=== PATIENT | female | born 1935 | race American Indian/Alaskan Native ===

== ENCOUNTER 2017-06-11 11:27 | Inpatient (IN) | payer MEDICARE ==
[2017-06-11 12:36] LABS: Basophils % (Auto) 0.5 % (0.0-1.8); Eosinophils % (Auto) 1.3 % (0.0-4.3); Hematocrit 37.8 % (30.3-42.9); Hemoglobin 11.6 gm/dl (10.1-14.3); Mean Corpuscular HGB Conc 31 % (30-34); Mean Corpuscular Volume 82 fl (79-97); Platelet Count 149 K/mm3 (140-440); Red Blood Count 4.63 M/mm3 (3.65-5.03); Red Cell Distribution Width 14.9 % (13.2-15.2); White Blood Count 4.7 K/mm3 (4.5-11.0)
--- NOTE | 2017-06-11 12:37 | XRay Report ---
AP CHEST : 06/11/17 11:27:00 CLINICAL: Chest pain. COMPARISON:None FINDINGS: Cardiomegaly. Prominent central pulmonary vessels. Median sternotomy wires. Aortic tortuosity and calcification. Mild bilateral interstitial lung opacities. No pleural effusion. IMPRESSION: Mild CHF.
[2017-06-11 12:41] LABS: Mean Corpuscular Hemoglobin 25 pg (28-32)
[2017-06-11 12:46] LABS: INR 1.04 (0.87-1.13)
[2017-06-11 12:47] LABS: Partial Thromboplastin Time 27.5 Sec. (24.2-36.6)
[2017-06-11 12:49] LABS: Anion Gap 14 mmol/L; BUN/Creatinine Ratio 23; Blood Urea Nitrogen 21 mg/dL (7-17); Calcium 9.6 mg/dL (8.4-10.2); Carbon Dioxide 31 mmol/L (22-30); Glucose 87 mg/dL (65-100); Potassium 4.5 mmol/L (3.6-5.0); Sodium 140 mmol/L (137-145)
--- NOTE | 2017-06-11 13:02 | Emergency Department Report ---
ED Chest Pain HPI - General Chief Complaint: Chest Pain Stated Complaint: CHEST PAIN Time Seen by Provider: 06/11/17 12:36 Source: patient, EMS Mode of arrival: Stretcher Limitations: Physical Limitation - History of Present Illness Initial Comments: Patient states that earlier this morning she had an anterior nonradiating chest pain. She states it lasted for a "long time". She complains of chronic dyspnea which I don't think is acutely worse. She's had a recent admission to [facility] I believe for congestive heart failure. Review of the patient's previous cardiac catheterization indicates that she has a mid LAD in-stent restenosis with a 8% mid circumflex and an 80% OM 1 lesion. She is status post ORTEGA to the right ear and SVG to OM. See CABG). She has a very significant and lengthy cardiac history. She is a patient of [facility] [employer]. She has a history of insulin-dependent diabetes as well as hypertension and congestive heart failure. MD Complaint: chest pain -: hour(s) Onset: during rest Pain Location: substernal Pain Radiation: none Severity: moderate Quality: heaviness Consistency: now resolved Improves With: nothing Worsens With: nothing re: dyspnea Other Symptoms: denies: cough, fever, syncope Aspirin use within the Past 7 Days: (1) Yes - Related Data Home Medications Medication Instructions Recorded Confirmed Last Taken Amlodipine Besylate [Amlodipine 10 mg PO DAILY 03/15/16 03/15/16 03/14/16 Besylate] 10mg Brimonidine Tartrate [Alphagan P 1 drop OU TID 03/15/16 03/15/16 03/14/16 0.1%] 1 Clopidogrel Bisulfate [Clopidogrel] 75 mg PO DAILY 03/15/16 03/15/16 03/14/16 75mg Ezetimibe [Zetia] 10 mg PO DAILY 03/15/16 03/15/16 03/14/16 10mg Furosemide [Furosemide] 80 mg PO DAILY 03/15/16 03/15/16 03/14/16 80mg Gabapentin [Gabapentin] 600 mg PO BID 03/15/16 03/15/16 03/14/16 600mg ISOSORBIDE MONOnitrate [Imdur ER] 60 mg PO DAILY 03/15/16 03/15/16 03/14/16 60mg Insulin Lispro [Humalog 100 10 units SC DAILY PRN 03/15/16 03/15/16 Unknown UNITS/ML Kwikpen] Insulin NPH Hum/Reg Insulin Hm 15 units SC BID 03/15/16 03/15/16 03/14/16 [HumuLIN 70-30 Vial] 15units Metformin HCl [Metformin HCl] 1,000 mg PO BID 03/15/16 03/15/16 03/14/16 1000mg Metolazone [Metolazone] 2.5 mg PO 1XW 03/15/16 03/15/16 03/09/16 2.5mg Metoprolol Tartrate [Metoprolol 50 mg PO BID 03/15/16 03/15/16 03/14/16 Tartrate] 50mg Valsartan/Hydrochlorothiazide 1 tab PO DAILY 03/15/16 03/15/16 03/14/16 [Valsartan-Hctz 320-12.5 mg] 1 Allergies Allergy/AdvReac Type Severity Reaction Status Date / Time No Known Allergies Allergy Verified 03/15/16 07:21 Heart Score - HEART Score History: Highly suspicious EKG: Non-specific Age: > 65 Risk factors: > 3 risk factors or hx of atherosclerotic disease Troponin: < normal limit HEART Score: 7 ED Review of Systems ROS: Stated complaint: CHEST PAIN Other details as noted in HPI Constitutional: denies: chills, fever Eyes: denies: eye pain, eye discharge, vision change ENT: denies: ear pain, throat pain Respiratory: no symptoms reported, shortness of breath, SOB with exertion, SOB at rest. denies: cough, wheezing Cardiovascular: as per HPI, chest pain. denies: palpitations Endocrine: no symptoms reported Gastrointestinal: denies: abdominal pain, nausea, diarrhea Genitourinary: denies: urgency, dysuria, discharge Musculoskeletal: denies: back pain, joint swelling, arthralgia Skin: denies: rash, lesions Neurological: denies: headache, weakness, paresthesias Psychiatric: denies: anxiety, depression Hematological/Lymphatic: denies: easy bleeding, easy bruising ED Past Medical Hx - Past Medical History Hx Hypertension: Yes Hx Heart Attack/AMI: Yes Hx Congestive Heart Failure: No Hx Diabetes: Yes - Surgical History Hx Coronary Stent: Yes Hx Open Heart Surgery: Yes (CABG x 4) Hx Cholecystectomy: Yes - Social History Smoking Status: Never Smoker Substance Use Type: Alcohol - Medications Home Medications: Home Medications Medication Instructions Recorded Confirmed Last Taken Type Amlodipine Besylate [Amlodipine 10 mg PO DAILY 03/15/16 03/15/16 03/14/16 History Besylate] 10mg Brimonidine Tartrate [Alphagan P 1 drop OU TID 03/15/16 03/15/16 03/14/16 History 0.1%] 1 Clopidogrel Bisulfate [Clopidogrel] 75 mg PO DAILY 03/15/16 03/15/16 03/14/16 History 75mg Ezetimibe [Zetia] 10 mg PO DAILY 03/15/16 03/15/16 03/14/16 History 10mg Furosemide [Furosemide] 80 mg PO DAILY 03/15/16 03/15/16 03/14/16 History 80mg Gabapentin [Gabapentin] 600 mg PO BID 03/15/16 03/15/16 03/14/16 History 600mg ISOSORBIDE MONOnitrate [Imdur ER] 60 mg PO DAILY 03/15/16 03/15/16 03/14/16 History 60mg Insulin Lispro [Humalog 100 10 units SC DAILY PRN 03/15/16 03/15/16 Unknown History UNITS/ML Kwikpen] Insulin NPH Hum/Reg Insulin Hm 15 units SC BID 03/15/16 03/15/16 03/14/16 History [HumuLIN 70-30 Vial] 15units Metformin HCl [Metformin HCl] 1,000 mg PO BID 03/15/16 03/15/16 03/14/16 History 1000mg Metolazone [Metolazone] 2.5 mg PO 1XW 03/15/16 03/15/16 03/09/16 History 2.5mg Metoprolol Tartrate [Metoprolol 50 mg PO BID 03/15/16 03/15/16 03/14/16 History Tartrate] 50mg Valsartan/Hydrochlorothiazide 1 tab PO DAILY 03/15/16 03/15/16 03/14/16 History [Valsartan-Hctz 320-12.5 mg] 1 ED Physical Exam - General Limitations: Physical Limitation General appearance: alert, in no apparent distress - Head Head exam: Present: atraumatic, normocephalic - Eye Eye exam: Present: normal appearance. Absent: scleral icterus - ENT ENT exam: Present: mucous membranes moist - Neck Neck exam: Present: normal inspection - Respiratory Respiratory exam: Present: normal lung sounds bilaterally. Absent: respiratory distress - Cardiovascular Cardiovascular Exam: Present: regular rate, normal rhythm. Absent: systolic murmur, diastolic murmur, rubs, gallop - GI/Abdominal GI/Abdominal exam: Present: soft, normal bowel sounds. Absent: distended, tenderness, guarding, rebound, rigid - Extremities Exam Extremities exam: Present: normal inspection, other (no significant leg edema). Absent: calf tenderness - Back Exam Back exam: Present: normal inspection - Neurological Exam Neurological exam: Present: alert, oriented X3, other (no acute focal deficit) - Psychiatric Psychiatric exam: Present: normal affect, normal mood - Skin Skin exam: Present: warm, dry, intact, normal color. Absent: rash ED Course Vital Signs 06/11/17 06/11/17 11:43 11:50 Temperature 98.0 F Pulse Rate 55 L 54 L Respiratory 15 16 Rate Blood Pressure 147/63 Blood Pressure 147/63 [Right] - Reevaluation(s) Reevaluation #1: Chest x-ray showed mild CHF. The patient was given 20 of Lasix IV, and half an inch of Nitrol paste and aspirin. She is stable at this time and referred to Dr. Patel, hospital service. 06/11/17 13:40 MATT score - Matt Score Age > 65: (1) Yes Aspirin use within the Past 7 Days: (1) Yes 3 or more CAD Risk Factors: (1) Yes 2 or more Angina events in past 24 hrs: (0) No Known CAD with more than 50% Stenosis: (1) Yes Elevated Cardiac Markers: (0) No ST Deviation Greater than 0.5mm: (0) No MATT Score: 4 ED Medical Decision Making - Lab Data Result diagrams: 06/11/17 12:10 06/11/17 12:10 Laboratory Results - last 24 hr 06/11/17 06/11/17 06/11/17 12:10 12:10 12:10 WBC 4.7 RBC 4.63 Hgb 11.6 Hct 37.8 MCV 82 MCH 25 L MCHC 31 RDW 14.9 Plt Count 149 Lymph % (Auto) 39.0 H Stanley % (Auto) 6.9 Eos % (Auto) 1.3 Baso % (Auto) 0.5 Lymph # 1.9 Stanley # 0.3 Eos # 0.1 Baso # 0.0 Seg Neutrophils % 52.3 Seg Neutrophils # 2.5 PT 14.1 INR 1.04 APTT 27.5 Sodium 140 Potassium 4.5 Chloride 100.0 Carbon Dioxide 31 H Anion Gap 14 BUN 21 H Creatinine 0.9 Estimated GFR > 60 BUN/Creatinine Ratio 23 Glucose 87 Calcium 9.6 Troponin T < 0.010 NT-Pro-B Natriuret Pep 06/11/17 12:10 WBC RBC Hgb Hct MCV MCH MCHC RDW Plt Count Lymph % (Auto) Stanley % (Auto) Eos % (Auto) Baso % (Auto) Lymph # Stanley # Eos # Baso # Seg Neutrophils % Seg Neutrophils # PT INR APTT Sodium Potassium Chloride Carbon Dioxide Anion Gap BUN Creatinine Estimated GFR BUN/Creatinine Ratio Glucose Calcium Troponin T NT-Pro-B Natriuret Pep 350.2 Laboratory Results - last 24 hr 06/11/17 06/11/17 06/11/17 12:10 12:10 12:10 WBC 4.7 RBC 4.63 Hgb 11.6 Hct 37.8 MCV 82 MCH 25 L MCHC 31 RDW 14.9 Plt Count 149 Lymph % (Auto) 39.0 H Stanley % (Auto) 6.9 Eos % (Auto) 1.3 Baso % (Auto) 0.5 Lymph # 1.9 Stanley # 0.3 Eos # 0.1 Baso # 0.0 Seg Neutrophils % 52.3 Seg Neutrophils # 2.5 PT 14.1 INR 1.04 APTT 27.5 Sodium 140 Potassium 4.5 Chloride 100.0 Carbon Dioxide 31 H Anion Gap 14 BUN 21 H Creatinine 0.9 Estimated GFR > 60 BUN/Creatinine Ratio 23 Glucose 87 Calcium 9.6 Troponin T < 0.010 NT-Pro-B Natriuret Pep 06/11/17 12:10 WBC RBC Hgb Hct MCV MCH MCHC RDW Plt Count Lymph % (Auto) Stanley % (Auto) Eos % (Auto) Baso % (Auto) Lymph # Stanley # Eos # Baso # Seg Neutrophils % Seg Neutrophils # PT INR APTT Sodium Potassium Chloride Carbon Dioxide Anion Gap BUN Creatinine Estimated GFR BUN/Creatinine Ratio Glucose Calcium Troponin T NT-Pro-B Natriuret Pep 350.2 - EKG Data EKG shows normal: sinus rhythm Rate: bradycardia - EKG Data Interpretation: other (supraventricular ectopic beats, sinus bradycardia, old inferior wall tenderness, poor R-wave progression, intraventricular conduction delay) - Radiology Data Radiology results: report reviewed interpreted by me: Chest x-ray with early CHF Critical care attestation.: If time is entered above; I have spent that time in minutes in the direct care of this critically ill patient, excluding procedure time. ED Disposition Clinical Impression: Bradycardia Chest pain Qualifiers: Chest pain type: chest pain due to myocardial ischemia Ischemic chest pain type : unstable angina pectoris Qualified Code(s): I20.0 - Unstable angina Hypertension Qualifiers: Hypertension type: essential hypertension Qualified Code(s): I10 - Essential ( primary) hypertension Congestive heart failure Qualifiers: Congestive heart failure type: combined Congestive heart failure chronicity: acute on chronic Qualified Code(s): I50.43 - Acute on chronic combined systolic (congestive) and diastolic (congestive) heart failure Disposition: 09 OP ADMIT IP TO THIS HOSP Is pt being admited?: Yes Does the pt Need Aspirin: Yes Condition: Stable Instructions: Chest Pain (ED), Hypertension (ED) Referrals: PRIMARY CARE, [Primary Care Provider] - 3-5 Days
[2017-06-11] MEDS ORDERED: NITRO-BID 2% TP ONE (13:28)
[2017-06-11] MEDS ORDERED: ASPIRIN PO ONE (13:28)
[2017-06-11] MEDS ORDERED: LASIX IV ONE (13:29)
[2017-06-11] MEDS ORDERED: TYLENOL PO PRN (13:34)
[2017-06-11] MEDS ORDERED: ZOFRAN IV PRN (13:34)
[2017-06-11] MEDS ORDERED: DULCOLAX PR PRN (13:34)
[2017-06-11] MEDS ORDERED: MILK OF MAGNESIA PO PRN (13:34)
[2017-06-11] MEDS ORDERED: PROVENTIL IH PRN (13:34)
[2017-06-11] MEDS ORDERED: SODIUM CHLORIDE FLUSH SYRINGE 10 ML IV PRN (13:37)
--- NOTE | 2017-06-11 13:37 | History and Physical Report ---
History of Present Illness Chief complaint: I have pain in my chest History of present illness: 82 YO Female with HTN, DM, CHF,OK, CAD S/P CABG and Stent presents to ED for evaluation. Pt states that she experienced acute onset pain in her chest today. Pt states that pain is 7/10, Crushing in nature, Substernal, Radiates to left shoulder and arm, and is associated with shortness of breath. Pt recently admitted to [facility] for congestive heart failure. Review of the patient' s previous cardiac cath reveals: mid LAD in-stent restenosis with a 8% mid circumflex and an 80% OM 1 lesion. She is status post ORTEGA to the right ear and SVG to OM. PT denies fever, chills, palpitations, NVD, Unilateral leg swelling, calf pain, prolonged travel/immobility, Individual/Family history of DVT/PE. No recent ill contacts. Past History Past Medical History: acute OK, CAD, diabetes, heart failure, hypertension Past Surgical History: CABG, Other (Stent) Social history: , lives with family. denies: smoking, alcohol abuse Family history: diabetes, hypertension Medications and Allergies Allergies Allergy/AdvReac Type Severity Reaction Status Date / Time No Known Allergies Allergy Verified 03/15/16 07:21 Home Medications Medication Instructions Recorded Confirmed Last Taken Type Amlodipine Besylate [Amlodipine 10 mg PO DAILY 03/15/16 03/15/16 03/14/16 History Besylate] 10mg Brimonidine Tartrate [Alphagan P 1 drop OU TID 03/15/16 03/15/16 03/14/16 History 0.1%] 1 Clopidogrel Bisulfate [Clopidogrel] 75 mg PO DAILY 03/15/16 03/15/16 03/14/16 History 75mg Ezetimibe [Zetia] 10 mg PO DAILY 03/15/16 03/15/16 03/14/16 History 10mg Furosemide [Furosemide] 80 mg PO DAILY 03/15/16 03/15/16 03/14/16 History 80mg Gabapentin [Gabapentin] 600 mg PO BID 03/15/16 03/15/16 03/14/16 History 600mg ISOSORBIDE MONOnitrate [Imdur ER] 60 mg PO DAILY 03/15/16 03/15/16 03/14/16 History 60mg Insulin Lispro [Humalog 100 10 units SC DAILY PRN 03/15/16 03/15/16 Unknown History UNITS/ML Kwikpen] Insulin NPH Hum/Reg Insulin Hm 15 units SC BID 03/15/16 03/15/16 03/14/16 History [HumuLIN 70-30 Vial] 15units Metformin HCl [Metformin HCl] 1,000 mg PO BID 03/15/16 03/15/16 03/14/16 History 1000mg Metolazone [Metolazone] 2.5 mg PO 1XW 03/15/16 03/15/16 03/09/16 History 2.5mg Metoprolol Tartrate [Metoprolol 50 mg PO BID 03/15/16 03/15/16 03/14/16 History Tartrate] 50mg Valsartan/Hydrochlorothiazide 1 tab PO DAILY 03/15/16 03/15/16 03/14/16 History [Valsartan-Hctz 320-12.5 mg] 1 Active Meds: Active Medications Acetaminophen (Tylenol) 650 mg PO Q4H PRN PRN Reason: Pain MILD(1-3)/Fever >100.5/KAUFFMAN Albuterol (Proventil) 2.5 mg IH Q4HRT PRN PRN Reason: Shortness Of Breath Bisacodyl (Dulcolax) 10 mg ND QDAY PRN PRN Reason: Constipation unrelieved by MOM Magnesium Hydroxide (Milk Of Magnesia) 30 ml PO Q4H PRN PRN Reason: Constipation Ondansetron HCl (Zofran) 4 mg IV Q8H PRN PRN Reason: N/V unrelieved by Reglan Review of Systems Constitutional: no weight loss, no weight gain, no fever, no chills, no sweats, no night sweats Ears, nose, mouth and throat: no ear pain, no ear discharge, no tinnitis, no decreased hearing, no nose pain, no nasal congestion, no nasal discharge Breasts: no change in shape, no swelling, no mass Cardiovascular: chest pain, shortness of breath, no orthopnea, no palpitations, no rapid/irregular heart beat, no edema, no dyspnea on exertion, no paroxysmal nocturnal dyspnea, no claudication, no phlebitis Respiratory: no cough, no cough with sputum, no excessive sputum, no hemoptysis , no shortness of breath Gastrointestinal: no abdominal pain, no nausea, no vomiting, no diarrhea, no constipation, no change in bowel habits Genitourinary Female: no dysmenorrhea, no pelvic pain, no flank pain, no menorrhagia Rectal: no pain, no incontinence, no bleeding Musculoskeletal: no neck stiffness, no neck pain, no shooting arm pain, no arm numbness/tingling, no low back pain, no shooting leg pain, no leg numbness/ tingling Integumentary: no rash, no pruritis, no redness, no sores, no wounds Neurological: no head injury, no transient paralysis, no paralysis, no weakness , no parathesias, no numbness, no tingling Psychiatric: no anxiety, no memory loss, no change in sleep habits, no sleep disturbances, no insomnia, no hypersomnia, no change in appetite Endocrine: no cold intolerance, no heat intolerance, no polyphagia, no excessive thirst, no polydipsia, no polyuria, no nocturia Hematologic/Lymphatic: no easy bruising, no easy bleeding Allergic/Immunologic: no urticaria, no allergic rhinitis, no wheezing Exam - Constitutional Vitals: Temp Pulse Resp BP Pulse Ox 98.0 F 54 L 16 147/63 06/11/17 11:50 06/11/17 11:50 06/11/17 11:50 06/11/17 11:50 General appearance: Present: mild distress, obese - EENT Eyes: Present: PERRL ENT: hearing intact, clear oral mucosa - Neck Neck: Present: supple, normal ROM - Respiratory Respiratory: bilateral: diminished - Cardiovascular Heart Sounds: Present: S1 & S2. Absent: rub, click - Extremities Extremities: pulses symmetrical, No edema Extremity abnormal: edema Peripheral Pulses: within normal limits - Abdominal General gastrointestinal: Present: soft, non-tender, non-distended, normal bowel sounds Female genitourinary: Present: normal - Integumentary Integumentary: Present: clear, warm, dry - Musculoskeletal Musculoskeletal: gait normal, strength equal bilaterally - Psychiatric Psychiatric: appropriate mood/affect, intact judgment & insight - Neurologic Neurologic: CNII-XII intact, moves all extremities Results - Labs CBC & Chem 7: 06/11/17 12:10 06/11/17 12:10 Labs: Abnormal lab results 06/11/17 06/11/17 Range/Units 12:10 12:10 MCH 25 L (28-32) pg Lymph % (Auto) 39.0 H (13.4-35.0) % Carbon Dioxide 31 H (22-30) mmol/L BUN 21 H (7-17) mg/dL Assessment and Plan - Patient Problems (1) Congestive heart failure Current Visit: Yes Status: Acute Qualifiers: Congestive heart failure type: systolic Congestive heart failure chronicity : acute on chronic Qualified Code(s): I50.23 - Acute on chronic systolic ( congestive) heart failure Plan to address problem: Admit to telemetry, fluid restriction, afterload reduction, Echo, cardiology consulted, diuretic therapy, monitor uop q shift, negative fluid balance (2) Hypertension Current Visit: Yes Status: Acute Qualifiers: Hypertension type: essential hypertension Qualified Code(s): I10 - Essential (primary) hypertension Plan to address problem: Monitor bp q shift, continue medical management (3) CAD (coronary artery disease) Current Visit: No Status: Chronic Qualifiers: Coronary Disease-Associated Artery/Lesion type: C [place] vs. transplanted heart: N Associated angina: A Plan to address problem: Risk factor reduction, supportive care, lipid panel (4) Diabetes Current Visit: No Status: Chronic Qualifiers: Diabetes mellitus type: D Diabetes mellitus complication status: D Diabetes mellitus complication detail: D Diabetic retinopathy severity: D Proliferative retinopathy type: P Diabetes mellitus macular edema: D Diabetes mellitus long term care pharmacist insulin use: D Laterality: L Chronic kidney disease stage: C Plan to address problem: ADA diet, insulin, accu check (5) Bradycardia Current Visit: Yes Status: Acute Plan to address problem: Telemetry monitoring, supportive care, (6) DVT prophylaxis Current Visit: Yes Status: Acute
[2017-06-11] MEDS ORDERED: INSULIN LISPRO 10 UNIT SC PRN (13:39)
[2017-06-11 15:27] LABS: Alanine Aminotransferase 25 units/L (7-56); Albumin 3.9 g/dL (3.9-5); Albumin/Globulin Ratio 0.9 %; Alkaline Phosphatase 64 units/L (35-129); Total Protein 8.2 g/dL (6.3-8.2)
[2017-06-11 15:37] LABS: Bilirubin,Direct < 0.2 mg/dL (0-0.2); Bilirubin,Indirect 0.4 mg/dL
[2017-06-11] MEDS: NOVOLOG SUB-Q SCH (16:35)
[2017-06-11] MEDS: LASIX IV SCH (18:34)
[2017-06-11] MEDS: ALPHAGAN P 0.15% OU SCH ×2 (22:00→23:00)
[2017-06-11] MEDS: NEURONTIN PO SCH (22:08)
[2017-06-11] MEDS: LOPRESSOR PO SCH (22:08)
[2017-06-12] MEDS: ALPHAGAN P 0.15% OU SCH ×3 (06:19→22:52)
[2017-06-12] MEDS: LASIX IV SCH ×2 (06:19→18:57)
[2017-06-12] MEDS: ZETIA PO SCH (10:00)
[2017-06-12] MEDS ORDERED: HYDROCHLOROTHIAZIDE PO SCH (10:00)
[2017-06-12] MEDS ORDERED: VALSARTAN PO SCH (10:00)
[2017-06-12] MEDS: HCTZ PO SCH (10:05)
[2017-06-12] MEDS: NORVASC PO SCH (10:05)
[2017-06-12] MEDS: DIOVAN PO SCH (10:05)
[2017-06-12] MEDS: LOPRESSOR PO SCH ×2 (10:06→22:52)
[2017-06-12] MEDS: NEURONTIN PO SCH ×2 (10:07→22:51)
[2017-06-12] MEDS: PLAVIX PO SCH (10:07)
[2017-06-12] MEDS: IMDUR PO SCH (10:08)
[2017-06-12] MEDS: NOVOLOG SUB-Q SCH ×3 (10:10→18:00)
--- NOTE | 2017-06-12 12:20 | Event Note ---
Date: 06/12/17 Cardiology note dictated #1 chest pain suggestive of angina pectoris No acute changes on the EKG and cardiac enzymes are so far negative. Will obtain a stress thallium test for further evaluation of ischemia. #2 coronary artery disease Status post myocardial infarction Status post PTCA Status post CABG #3 hypertension #4 hyperlipidemia #5 diabetes #6 sleep apnea #7 DJD Patient will be monitored and followed closely Thank you for me to participate in the care of this pleasant lady Discussed with multiple family members in the room Dr. KAUR Sims
--- NOTE | 2017-06-12 13:42 | Consultation ---
CARDIOLOGY EVALUATION REASON FOR EVALUATION: Chest pain. HISTORY OF PRESENT ILLNESS: The patient is an 82-year-old female who is usually followed at the office, comes into the Emergency Room because of chest discomfort. The pain is described as a dull pressure type of discomfort with radiation to the left arm, lasted for about 1-2 hours. Blood pressure was markedly elevated apparently and the patient came to the Emergency Room and is admitted for further evaluation and management. The patient is well known to us and is followed by Dr. Manzanares in the office. The patient is known to have coronary artery disease and her history dates back to mid when she had myocardial infarction and subsequent PTCA. The patient had bypass surgery done in 2002 or 2003. She is known to have hypertension, hyperlipidemia, and diabetes. The patient is also known to have sleep apnea. The patient had a cardiac catheterization done in 02/2016. This shows patent left main, mid LAD 80% lesion. First diagonal was noted to be patent. ORTEGA to LAD was patent. Circumflex proximal lesion was about 80%. OM to distal 80%. Vein graft to OM1 has a proximal lesion of 20-30%. Mid RCA has diffuse disease. Distal stent was apparently patent. PDA and posterior left ventricular branch are patent. Left ventricular function was satisfactory. Plan was medical management. The patient has been on aspirin 81 mg a day, Diovan 320 mg a day, gabapentin 300 two tablets twice a day, Humalog and Humulin, Imdur 60 mg daily, K-Dur 10 mEq daily, Lasix 80 mg daily, metformin 1 gram b.i.d., metoprolol 50 daily, Norvasc 10 mg daily, Plavix 75 mg daily, Pravachol 20 mg daily, Zaroxolyn 2.5. The patient is also known to have significant peripheral vascular disease. The patient is known to have back problems and uses a walker to assist her or a cane at times. The patient had a cholecystectomy in the past. Rest of the system review is unremarkable. PHYSICAL EXAMINATION: GENERAL: Elderly female, appears to be comfortable, in no acute distress. VITAL SIGNS: Blood pressure is , pulse 60, respirations 18. HEAD, EYES, EARS, NOSE, AND THROAT: Unremarkable. NECK: Supple. No thyromegaly. Both carotids are palpable and equal. Neck veins are flat. CHEST: Symmetrical. LUNGS: Essentially clear. HEART: S1, S2 are heard. No S3. ABDOMEN: Soft, nontender, no hepatosplenomegaly. EXTREMITIES: No calf tenderness. LABORATORY DATA: EKG: Sinus rhythm, left ventricular hypertrophy, left axis deviation, possible old anteroseptal IL. WBC 4.7, hemoglobin 11.6, hematocrit 37.8. Sodium 140, potassium 4.5, BUN 21, creatinine 0.9. BNP 428. Troponin negative x 2. Blood sugar 87. IMPRESSION: 1. Chest pain, improved at this time. 2. Coronary artery disease, status post myocardial infarction, status post bypass surgery. Last cardiac catheterization in 02/2016 showed satisfactory graft and plan at the time was continued medical management. The patient is on appropriate medical therapy. Currently, cardiac enzymes are noted to be negative. Chest pain has improved. We will obtain a nuclear stress test for further assessment of ischemia. 3. Hypertension. 4. Hyperlipidemia. 5. Diabetes. 6. Sleep apnea, on CPAP at home. The patient is seen for cardiac evaluation. She has multiple medical issues as well as cardiac issues of a long duration. The patient will be closely monitored and followed. Thank you for allowing me to participate in the care of this pleasant lady. I have discussed with multiple family members in the room. JOB# [id number]/SAMMY
--- NOTE | 2017-06-12 14:16 | Progress Note ---
Assessment and Plan Assessment and plan: 82 yo obese AAF with CAD s/p remote CABG, then PCI with stent placement, HTN, DM , HPL presents for chest pain with radiation to the left arm 1. Chest pain Chest pain with left arm radiation in a patient with extensive coronary artery disease - most likely anginal EKG with no acute ischemic change First 2 sets of troponin negative Already on metoprolol, valsartan, Imdur, Plavix and Zetia Evaluated by cardiology who decided to obtain stress test in a.m. to further evaluate her ischemia Monitored closed on telemetry unit 2. CAD Status post remote CABG, then PCI with stent placement Last cardiac catheterization 02/2016 showed patent left main, mid LAD 80% stenosis, proximal circumflex with 80% stenosis, mid RCA with diffuse disease On BB, ACEI, nitrate, antiplatelet and statin 3. HTN On all of the above medications Monitor BP 4. Questionable congestive heart failure Per last cardiac catheterization in 02/2016 normal LV function On BB, ACEI, nitrate and 3 diuretics Will discuss with cardiology if she needs to be on 3 diuretics; monitor I's and O's and renal function/electrolytes 4. DM On insulin 70/30 Accu-Cheks and SSI to assess insulin requirements and make adjustments if necessary 5. HPL Continue Zetia 6. [place]ST[place] Brought CPAP machine from home RT to assist 7. Obesity Counseled regarding importance of losing weight 8. DVT prophylaxis Heparin subcutaneous History Interval history: no chest pain this morning scheduled for stress test in am daughter present at bedsite, all her questions answered Hospitalist Physical - Constitutional Vitals: Temp Pulse Resp BP Pulse Ox 98.0 F 60 16 135/57 100 06/12/17 11:40 06/12/17 10:08 06/12/17 11:40 06/12/17 11:40 06/12/17 09:00 General appearance: Present: no acute distress, obese - EENT Eyes: Present: PERRL, EOM intact. Absent: scleral icterus, conjunctival injection - Neck Neck: Present: supple. Absent: enlarged thyroid, masses or JVD, carotid bruits - Respiratory Respiratory effort: normal Respiratory: bilateral: diminished, rhonchi, negative: wheezing - Cardiovascular Rhythm: regular Heart Sounds: Present: S1 & S2. Absent: systolic murmur - Extremities Extremities: no ischemia - Abdominal General gastrointestinal: soft, non-tender, non-distended, normal bowel sounds - Integumentary Integumentary: Present: warm, dry. Absent: jaundice, rash - Psychiatric Psychiatric: cooperative - Neurologic Neurologic: CNII-XII intact, no focal deficits Results - Labs CBC & Chem 7: 06/11/17 12:10 06/11/17 12:10 Labs: Laboratory Last Values WBC 4.7 K/mm3 (4.5-11.0) 06/11/17 12:10 RBC 4.63 M/mm3 (3.65-5.03) 06/11/17 12:10 Hgb 11.6 gm/dl (10.1-14.3) 06/11/17 12:10 Hct 37.8 % (30.3-42.9) 06/11/17 12:10 MCV 82 fl (79-97) 06/11/17 12:10 MCH 25 pg (28-32) L 06/11/17 12:10 MCHC 31 % (30-34) 06/11/17 12:10 RDW 14.9 % (13.2-15.2) 06/11/17 12:10 Plt Count 149 K/mm3 (140-440) 06/11/17 12:10 Lymph % (Auto) 39.0 % (13.4-35.0) H 06/11/17 12:10 [place] % (Auto) 6.9 % (0.0-7.3) 06/11/17 12:10 Eos % (Auto) 1.3 % (0.0-4.3) 06/11/17 12:10 Baso % (Auto) 0.5 % (0.0-1.8) 06/11/17 12:10 Lymph # 1.9 K/mm3 (1.2-5.4) 06/11/17 12:10 Sharp # 0.3 K/mm3 (0.0-0.8) 06/11/17 12:10 Eos # 0.1 K/mm3 (0.0-0.4) 06/11/17 12:10 Baso # 0.0 K/mm3 (0.0-0.1) 06/11/17 12:10 Seg Neutrophils % 52.3 % (40.0-70.0) 06/11/17 12:10 Seg Neutrophils # 2.5 K/mm3 (1.8-7.7) 06/11/17 12:10 PT 14.1 Sec. (12.2-14.9) 06/11/17 12:10 INR 1.04 (0.87-1.13) 06/11/17 12:10 APTT 27.5 Sec. (24.2-36.6) 06/11/17 12:10 Sodium 140 mmol/L (137-145) 06/11/17 12:10 Potassium 4.5 mmol/L (3.6-5.0) 06/11/17 12:10 Chloride 100.0 mmol/L (98-107) 06/11/17 12:10 Carbon Dioxide 31 mmol/L (22-30) H 06/11/17 12:10 Anion Gap 14 mmol/L 06/11/17 12:10 BUN 21 mg/dL (7-17) H 06/11/17 12:10 Creatinine 0.9 mg/dL (0.7-1.2) 06/11/17 12:10 Estimated GFR > 60 ml/min 06/11/17 12:10 BUN/Creatinine Ratio 23 % 06/11/17 12:10 Glucose 87 mg/dL (65-100) 06/11/17 12:10 POC Glucose 257 (70-105) H 06/12/17 11:38 Calcium 9.6 mg/dL (8.4-10.2) 06/11/17 12:10 Magnesium 2.50 mg/dL (1.7-2.3) H 06/11/17 14:38 Total Bilirubin 0.60 mg/dL (0.1-1.2) 06/11/17 14:38 Direct Bilirubin < 0.2 mg/dL (0-0.2) 06/11/17 14:38 Indirect Bilirubin 0.4 mg/dL 06/11/17 14:38 AST 55 units/L (5-40) H 06/11/17 14:38 ALT 25 units/L (7-56) 06/11/17 14:38 Alkaline Phosphatase 64 units/L (35-129) 06/11/17 14:38 Troponin T < 0.010 ng/mL (0.00-0.029) 06/11/17 19:40 NT-Pro-B Natriuret Pep 428.4 pg/mL (0-900) 06/11/17 14:38 Total Protein 8.2 g/dL (6.3-8.2) 06/11/17 14:38 Albumin 3.9 g/dL (3.9-5) 06/11/17 14:38 Albumin/Globulin Ratio 0.9 % 06/11/17 14:38 - Imaging and Cardiology Chest x-ray: image reviewed
[2017-06-12] MEDS: HEPARIN SUB-Q SCH (22:51)
[2017-06-13] MEDS: ALPHAGAN P 0.15% OU SCH ×3 (05:57→22:19)
[2017-06-13] MEDS: LASIX IV SCH ×2 (05:57→17:47)
[2017-06-13] MEDS: HEPARIN SUB-Q SCH ×3 (06:04→22:20)
[2017-06-13] MEDS: NOVOLOG SUB-Q SCH ×3 (08:54→17:55)
[2017-06-13] MEDS ORDERED: LEXISCAN IV ONE (10:00)
--- NOTE | 2017-06-13 11:50 | Progress Note ---
Assessment and Plan Assessment and plan: 82 yo obese AAF with CAD s/p remote CABG, then PCI with stent placement, HTN, DM , HPL presented for chest pain with radiation to the left arm 1. Chest pain Chest pain with left arm radiation in a patient with extensive coronary artery disease - most likely anginal EKG with no acute ischemic change Troponin negative Already on metoprolol, valsartan, Imdur, Plavix and Zetia Evaluated by cardiology and underwent stress test this morning to further evaluate her ischemia; further management based on results Monitoring on telemetry unit 2. CAD Status post remote CABG, then PCI with stent placement Last cardiac catheterization 02/2016 showed patent left main, mid LAD 80% stenosis, proximal circumflex with 80% stenosis, mid RCA with diffuse disease On BB, ACEI, nitrate, antiplatelet and statin 3. HTN On all of the above medications BP controlled 4. Questionable congestive heart failure Per last cardiac catheterization in 02/2016 normal LV function On BB, ACEI, nitrate and 3 diuretics Will discuss with cardiology if she needs to be on 3 diuretics; monitor I's and O's and renal function/electrolytes 4. DM On insulin 70/30 Accu-Cheks and SSI to assess insulin requirements and make adjustments if necessary 5. HPL Continue Zetia 6. [place] Brought CPAP machine from home RT to assist 7. Obesity Counseled regarding importance of losing weight 8. DVT prophylaxis Heparin subcutaneous History Interval history: doing well, had stress test this morning Hospitalist Physical - Constitutional Vitals: Temp Pulse Resp BP Pulse Ox 97.6 F 60 18 135/58 97 06/13/17 05:24 06/13/17 07:00 06/13/17 05:24 06/13/17 05:24 06/13/17 05:24 General appearance: Present: no acute distress, obese - EENT Eyes: Present: PERRL, EOM intact. Absent: scleral icterus, conjunctival injection - Neck Neck: Present: supple, normal ROM. Absent: masses or JVD - Respiratory Respiratory effort: normal Respiratory: bilateral: CTA, negative: rhonchi, wheezing - Cardiovascular Rhythm: regular Heart Sounds: Present: S1 & S2. Absent: systolic murmur - Extremities Extremities: no ischemia - Abdominal General gastrointestinal: soft, non-tender, non-distended, normal bowel sounds - Psychiatric Psychiatric: cooperative - Neurologic Neurologic: CNII-XII intact, no focal deficits Results - Labs CBC & Chem 7: 06/11/17 12:10 06/11/17 12:10 Labs: Laboratory Last Values WBC 4.7 K/mm3 (4.5-11.0) 06/11/17 12:10 RBC 4.63 M/mm3 (3.65-5.03) 06/11/17 12:10 Hgb 11.6 gm/dl (10.1-14.3) 06/11/17 12:10 Hct 37.8 % (30.3-42.9) 06/11/17 12:10 MCV 82 fl (79-97) 06/11/17 12:10 MCH 25 pg (28-32) L 06/11/17 12:10 MCHC 31 % (30-34) 06/11/17 12:10 RDW 14.9 % (13.2-15.2) 06/11/17 12:10 Plt Count 149 K/mm3 (140-440) 06/11/17 12:10 Lymph % (Auto) 39.0 % (13.4-35.0) H 06/11/17 12:10 [place] % (Auto) 6.9 % (0.0-7.3) 06/11/17 12:10 Eos % (Auto) 1.3 % (0.0-4.3) 06/11/17 12:10 Baso % (Auto) 0.5 % (0.0-1.8) 06/11/17 12:10 Lymph # 1.9 K/mm3 (1.2-5.4) 06/11/17 12:10 [place] # 0.3 K/mm3 (0.0-0.8) 06/11/17 12:10 Eos # 0.1 K/mm3 (0.0-0.4) 06/11/17 12:10 Baso # 0.0 K/mm3 (0.0-0.1) 06/11/17 12:10 Seg Neutrophils % 52.3 % (40.0-70.0) 06/11/17 12:10 Seg Neutrophils # 2.5 K/mm3 (1.8-7.7) 06/11/17 12:10 PT 14.1 Sec. (12.2-14.9) 06/11/17 12:10 INR 1.04 (0.87-1.13) 06/11/17 12:10 APTT 27.5 Sec. (24.2-36.6) 06/11/17 12:10 Sodium 140 mmol/L (137-145) 06/11/17 12:10 Potassium 4.5 mmol/L (3.6-5.0) 06/11/17 12:10 Chloride 100.0 mmol/L (98-107) 06/11/17 12:10 Carbon Dioxide 31 mmol/L (22-30) H 06/11/17 12:10 Anion Gap 14 mmol/L 06/11/17 12:10 BUN 21 mg/dL (7-17) H 06/11/17 12:10 Creatinine 0.9 mg/dL (0.7-1.2) 06/11/17 12:10 Estimated GFR > 60 ml/min 06/11/17 12:10 BUN/Creatinine Ratio 23 % 06/11/17 12:10 Glucose 87 mg/dL (65-100) 06/11/17 12:10 POC Glucose 103 (70-105) 06/13/17 08:29 Calcium 9.6 mg/dL (8.4-10.2) 06/11/17 12:10 Magnesium 2.50 mg/dL (1.7-2.3) H 06/11/17 14:38 Total Bilirubin 0.60 mg/dL (0.1-1.2) 06/11/17 14:38 Direct Bilirubin < 0.2 mg/dL (0-0.2) 06/11/17 14:38 Indirect Bilirubin 0.4 mg/dL 06/11/17 14:38 AST 55 units/L (5-40) H 06/11/17 14:38 ALT 25 units/L (7-56) 06/11/17 14:38 Alkaline Phosphatase 64 units/L (35-129) 06/11/17 14:38 Troponin T < 0.010 ng/mL (0.00-0.029) 06/11/17 19:40 NT-Pro-B Natriuret Pep 428.4 pg/mL (0-900) 06/11/17 14:38 Total Protein 8.2 g/dL (6.3-8.2) 06/11/17 14:38 Albumin 3.9 g/dL (3.9-5) 06/11/17 14:38 Albumin/Globulin Ratio 0.9 % 06/11/17 14:38
[2017-06-13] MEDS: DIOVAN PO SCH (11:57)
[2017-06-13] MEDS: NEURONTIN PO SCH ×2 (11:59→22:20)
[2017-06-13] MEDS: PLAVIX PO SCH (12:00)
[2017-06-13] MEDS: NORVASC PO SCH (12:00)
[2017-06-13] MEDS: IMDUR PO SCH (12:01)
[2017-06-13] MEDS: HCTZ PO SCH (12:01)
[2017-06-13] MEDS: LOPRESSOR PO SCH ×2 (12:02→22:19)
--- NOTE | 2017-06-13 14:59 | Progress Note ---
Assessment and Plan Assessment: chest pain suggestive of angina pectoris -No acute changes on the EKG and cardiac enzymes are so far negative coronary artery disease - Status post myocardial infarction, Status post PTCA, Status post CABG Abnormal stress test hypertension hyperlipidemia diabetes sleep apnea DJD Plan: S/p lexiscan MPI stress test this AM which was suggestive of moderate anterolateral ischemia, EF 43%. Coronary angiogram recommended for definitive diagnosis. Indications, potential risks and benefits of [facility] reviewed with pt and pt's and she is agreeable to proceed in with [facility] in AM. Consents obtained. NPO after MN. The patient has been seen in conjunction with Dr. Major who agrees with the assessment and plan of care. Subjective Date of service: 06/13/17 Principal diagnosis: cp Interval history: pt seen in stress lab. no current cardiac complaints. Objective Last Vital Signs Temp 98.5 F 06/13/17 12:00 Pulse 56 L 06/13/17 12:02 Resp 20 06/13/17 12:00 BP 126/55 06/13/17 12:00 Pulse Ox 96 06/13/17 12:00 - Physical Examination General: Appears Well HEENT: Positive: PERRL, Normocephaly, Mucus Membranes Moist Neck: Positive: neck supple, trachea midline Cardiac: Positive: Reg Rate and Rhythm, S1/S2 Lungs: Positive: clear to auscultation Neuro: Positive: Grossly Intact Abdomen: Positive: Unremarkable, Soft, Active Bowel Sounds. Negative: Tender Skin: Positive: Clear. Negative: Rash Musculoskeletal: No Fluid Collection, No Pain, Normal Range of Motion Extremities: Absent: edema
[2017-06-13] MEDS ORDERED: NACL 0.9% 500 ML 500 ML IV SCH (17:00)
[2017-06-13] MEDS: ZETIA PO SCH (17:55)
[2017-06-14 04:56] LABS: Hematocrit 33.6 % (30.3-42.9); Hemoglobin 10.7 gm/dl (10.1-14.3); Mean Corpuscular HGB Conc 32 % (30-34); Mean Corpuscular Volume 80 fl (79-97); Platelet Count 143 K/mm3 (140-440); Red Blood Count 4.22 M/mm3 (3.65-5.03); Red Cell Distribution Width 14.9 % (13.2-15.2); White Blood Count 4.3 K/mm3 (4.5-11.0)
[2017-06-14 04:59] LABS: Mean Corpuscular Hemoglobin 25 pg (28-32)
[2017-06-14 05:06] LABS: INR 0.97 (0.87-1.13)
[2017-06-14 05:21] LABS: Anion Gap 14 mmol/L; BUN/Creatinine Ratio 21; Blood Urea Nitrogen 19 mg/dL (7-17); Calcium 9.1 mg/dL (8.4-10.2); Carbon Dioxide 31 mmol/L (22-30); Chloride 95.6 mmol/L (98-107); Glucose 77 mg/dL (65-100); Potassium 3.8 mmol/L (3.6-5.0); Sodium 137 mmol/L (137-145)
[2017-06-14 05:56] LABS: Basophils % (Manual) 0 % (0.0-1.8); Blastocytes % (Manual) 0 %
[2017-06-14 05:57] LABS: Diff Status Complete; Hypochromasia 1+; Platelet Estimate Consistent w Auto; Target Cells Few
[2017-06-14] MEDS: HEPARIN SUB-Q SCH ×3 (06:00→21:55)
[2017-06-14] MEDS: LASIX IV SCH ×2 (06:00→18:36)
[2017-06-14] MEDS: ALPHAGAN P 0.15% OU SCH ×3 (06:17→21:56)
[2017-06-14] MEDS: NOVOLOG SUB-Q SCH ×3 (08:20→18:35)
[2017-06-14] MEDS ORDERED: CALAN ONE (08:30)
[2017-06-14] MEDS ORDERED: NITROGLYCERIN SYRINGE 0 ML ONE (08:30)
[2017-06-14] MEDS ORDERED: XYLOCAINE 2% INFILTRATI ONE (08:30)
[2017-06-14] MEDS ORDERED: HEPARIN 10,000 UNITS/10 ML ONE (08:30)
[2017-06-14] MEDS ORDERED: HEPARIN/NS 5000 UNIT/500ML(CATH LAB) 1,000 ML IR ONE (08:30)
[2017-06-14] MEDS ORDERED: PLAVIX ONE ×2 (09:11→11:54)
[2017-06-14] MEDS: PLAVIX PO SCH (09:12)
[2017-06-14] MEDS ORDERED: ECOTRIN PO ONE (09:30)
[2017-06-14] MEDS ORDERED: VERSED ONE (10:27)
[2017-06-14] MEDS: SUBLIMAZE ONE ×2 (10:35→11:24)
[2017-06-14] MEDS ORDERED: HEPARIN/NS 5000 UNIT/500ML(CATH LAB) 500 ML IR ONE (11:09)
--- NOTE | 2017-06-14 11:52 | Progress Note ---
Assessment and Plan Assessment and plan: 82 yo obese AAF with CAD s/p remote CABG, then PCI with stent placement, HTN, DM , HPL presented for chest pain with radiation to the left arm 1. Chest pain Chest pain with left arm radiation in a patient with extensive coronary artery disease - most likely anginal EKG with no acute ischemic changes Troponin negative Already on metoprolol, valsartan, Imdur, Plavix and Zetia Evaluated by cardiology and underwent stress test 06/14 - abnormal with anterolateral ischemia and EF 43% Scheduled for cardiac cath today 2. CAD Status post remote CABG, then PCI with stent placement Last cardiac catheterization 02/2016 showed patent left main, mid LAD 80% stenosis, proximal circumflex with 80% stenosis, mid RCA with diffuse disease On BB, ACEI, nitrate, antiplatelet and statin For [facility] today 3. HTN On all of the above medications BP controlled 4. Questionable congestive heart failure Per last cardiac catheterization in 02/2016 normal LV function On BB, ACEI, nitrate and 3 diuretics Will discuss with cardiology if she needs to be on 3 diuretics; monitor I's and O's and renal function/electrolytes 4. DM On insulin 70/30 Accu-Cheks and SSI to assess insulin requirements and make adjustments if necessary 5. HPL Continue Zetia 6. [place] Brought CPAP machine from home RT to assist 7. Obesity Counseled regarding importance of losing weight 8. DVT prophylaxis Heparin subcutaneous History Interval history: stress test abnormal, scheduled for cardaic cath this morning Hospitalist Physical - Constitutional Vitals: Temp Pulse Resp BP Pulse Ox 97.7 F 51 L 20 122/56 100 06/14/17 07:49 06/14/17 07:49 06/14/17 07:49 06/14/17 07:49 06/14/17 07:49 General appearance: Present: no acute distress, obese - EENT Eyes: Present: PERRL, EOM intact - Neck Neck: Present: supple. Absent: enlarged thyroid, masses or JVD - Respiratory Respiratory effort: normal Respiratory: bilateral: CTA, negative: rhonchi, wheezing - Cardiovascular Rhythm: other (bradycardic) Heart Sounds: Present: S1 & S2. Absent: systolic murmur - Extremities Extremities: no ischemia - Abdominal General gastrointestinal: soft, non-tender, non-distended, normal bowel sounds - Neurologic Neurologic: CNII-XII intact, no focal deficits Results - Labs CBC & Chem 7: 06/14/17 04:34 06/14/17 04:34 Labs: Laboratory Last Values WBC 4.3 K/mm3 (4.5-11.0) L 06/14/17 04:34 RBC 4.22 M/mm3 (3.65-5.03) 06/14/17 04:34 Hgb 10.7 gm/dl (10.1-14.3) 06/14/17 04:34 Hct 33.6 % (30.3-42.9) 06/14/17 04:34 MCV 80 fl (79-97) 06/14/17 04:34 MCH 25 pg (28-32) L 06/14/17 04:34 MCHC 32 % (30-34) 06/14/17 04:34 RDW 14.9 % (13.2-15.2) 06/14/17 04:34 Plt Count 143 K/mm3 (140-440) 06/14/17 04:34 Lymph % (Auto) [employer] 06/14/17 04:34 [place] % (Auto) 6.9 % (0.0-7.3) 06/11/17 12:10 Eos % (Auto) 1.3 % (0.0-4.3) 06/11/17 12:10 Baso % (Auto) 0.5 % (0.0-1.8) 06/11/17 12:10 Lymph # 1.9 K/mm3 (1.2-5.4) 06/11/17 12:10 [place] # 0.3 K/mm3 (0.0-0.8) 06/11/17 12:10 Eos # 0.1 K/mm3 (0.0-0.4) 06/11/17 12:10 Baso # 0.0 K/mm3 (0.0-0.1) 06/11/17 12:10 Add Manual Diff Complete 06/14/17 04:34 Total Counted 100 06/14/17 04:34 Seg Neutrophils % [employer]per 06/14/17 04:34 Seg Neuts % (Manual) 31.0 % (40.0-70.0) L 06/14/17 04:34 Band Neutrophils % 0 % 06/14/17 04:34 Lymphocytes % (Manual) 64.0 % (13.4-35.0) H 06/14/17 04:34 Reactive Lymphs % (Man) 0 % 06/14/17 04:34 Monocytes % (Manual) 4.0 % (0.0-7.3) 06/14/17 04:34 Eosinophils % (Manual) 1.0 % (0.0-4.3) 06/14/17 04:34 Basophils % (Manual) 0 % (0.0-1.8) 06/14/17 04:34 Metamyelocytes % 0 % 06/14/17 04:34 Myelocytes % 0 % 06/14/17 04:34 Promyelocytes % 0 % 06/14/17 04:34 Blast Cells % 0 % 06/14/17 04:34 Nucleated RBC % Not Reportable 06/14/17 04:34 Seg Neutrophils # 2.5 K/mm3 (1.8-7.7) 06/11/17 12:10 Seg Neutrophils # Man 1.3 K/mm3 (1.8-7.7) L 06/14/17 04:34 Band Neutrophils # 0.0 K/mm3 06/14/17 04:34 Lymphocytes # (Manual) 2.8 K/mm3 (1.2-5.4) 06/14/17 04:34 Abs React Lymphs (Man) 0.0 K/mm3 06/14/17 04:34 Monocytes # (Manual) 0.2 K/mm3 (0.0-0.8) 06/14/17 04:34 Eosinophils # (Manual) 0.0 K/mm3 (0.0-0.4) 06/14/17 04:34 Basophils # (Manual) 0.0 K/mm3 (0.0-0.1) 06/14/17 04:34 Metamyelocytes # 0.0 K/mm3 06/14/17 04:34 Myelocytes # 0.0 K/mm3 06/14/17 04:34 Promyelocytes # 0.0 K/mm3 06/14/17 04:34 Blast Cells # 0.0 K/mm3 06/14/17 04:34 WBC Morphology Not Reportable 06/14/17 04:34 Hypersegmented Neuts Not Reportable 06/14/17 04:34 Hyposegmented Neuts Not Reportable 06/14/17 04:34 Hypogranular Neuts Not Reportable 06/14/17 04:34 Smudge Cells Not Reportable 06/14/17 04:34 Toxic Granulation Not Reportable 06/14/17 04:34 Toxic Vacuolation Not Reportable 06/14/17 04:34 Dohle Bodies Not Reportable 06/14/17 04:34 Pelger-Huet Anomaly Not Reportable 06/14/17 04:34 Aliya Rods Not Reportable 06/14/17 04:34 Platelet Estimate Consistent w auto 06/14/17 04:34 Clumped Platelets Not Reportable 06/14/17 04:34 Plt Clumps, EDTA Not Reportable 06/14/17 04:34 Large Platelets Not Reportable 06/14/17 04:34 Giant Platelets Not Reportable 06/14/17 04:34 Platelet Satelliting Not Reportable 06/14/17 04:34 Plt Morphology Comment Not Reportable 06/14/17 04:34 RBC Morphology Not Reportable 06/14/17 04:34 Dimorphic RBCs Not Reportable 06/14/17 04:34 Polychromasia Not Reportable 06/14/17 04:34 Hypochromasia 1+ 06/14/17 04:34 Poikilocytosis Not Reportable 06/14/17 04:34 Anisocytosis Not Reportable 06/14/17 04:34 Microcytosis Not Reportable 06/14/17 04:34 Macrocytosis Not Reportable 06/14/17 04:34 Spherocytes Not Reportable 06/14/17 04:34 Pappenheimer Bodies Not Reportable 06/14/17 04:34 Sickle Cells Not Reportable 06/14/17 04:34 Target Cells Few 06/14/17 04:34 Tear Drop Cells Not Reportable 06/14/17 04:34 Ovalocytes Not Reportable 06/14/17 04:34 Helmet Cells Not Reportable 06/14/17 04:34 [place] Bodies Not Reportable 06/14/17 04:34 [place] Rings Not Reportable 06/14/17 04:34 [place] Cells Not Reportable 06/14/17 04:34 Bite Cells Not Reportable 06/14/17 04:34 Crenated Cell Not Reportable 06/14/17 04:34 Elliptocytes Not Reportable 06/14/17 04:34 Acanthocytes (Spur) Not Reportable 06/14/17 04:34 Rouleaux Not Reportable 06/14/17 04:34 Hemoglobin C Crystals Not Reportable 06/14/17 04:34 Schistocytes Not Reportable 06/14/17 04:34 Malaria parasites Not Reportable 06/14/17 04:34 Castillo Bodies Not Reportable 06/14/17 04:34 Hem Pathologist Commnt No 06/14/17 04:34 PT 13.4 Sec. (12.2-14.9) 06/14/17 04:34 INR 0.97 (0.87-1.13) 06/14/17 04:34 APTT 27.5 Sec. (24.2-36.6) 06/11/17 12:10 Sodium 137 mmol/L (137-145) 06/14/17 04:34 Potassium 3.8 mmol/L (3.6-5.0) 06/14/17 04:34 Chloride 95.6 mmol/L (98-107) L 06/14/17 04:34 Carbon Dioxide 31 mmol/L (22-30) H 06/14/17 04:34 Anion Gap 14 mmol/L 06/14/17 04:34 BUN 19 mg/dL (7-17) H 06/14/17 04:34 Creatinine 0.9 mg/dL (0.7-1.2) 06/14/17 04:34 Estimated GFR > 60 ml/min 06/14/17 04:34 BUN/Creatinine Ratio 21 % 06/14/17 04:34 Glucose 77 mg/dL (65-100) 06/14/17 04:34 POC Glucose 82 (70-105) 06/14/17 09:02 Calcium 9.1 mg/dL (8.4-10.2) 06/14/17 04:34 Magnesium 2.50 mg/dL (1.7-2.3) H 06/11/17 14:38 Total Bilirubin 0.60 mg/dL (0.1-1.2) 06/11/17 14:38 Direct Bilirubin < 0.2 mg/dL (0-0.2) 06/11/17 14:38 Indirect Bilirubin 0.4 mg/dL 06/11/17 14:38 AST 55 units/L (5-40) H 06/11/17 14:38 ALT 25 units/L (7-56) 06/11/17 14:38 Alkaline Phosphatase 64 units/L (35-129) 06/11/17 14:38 Troponin T < 0.010 ng/mL (0.00-0.029) 06/11/17 19:40 NT-Pro-B Natriuret Pep 428.4 pg/mL (0-900) 06/11/17 14:38 Total Protein 8.2 g/dL (6.3-8.2) 06/11/17 14:38 Albumin 3.9 g/dL (3.9-5) 06/11/17 14:38 Albumin/Globulin Ratio 0.9 % 06/11/17 14:38
[2017-06-14] MEDS ORDERED: ALUM-MAG HYDROX-SIMETH 200-200-20MG/5ML ONE (11:55)
--- NOTE | 2017-06-14 12:01 | Progress Note ---
Assessment and Plan Assessment: chest pain suggestive of angina pectoris - currently resolved; No acute changes on the EKG and cardiac enzymes are so far negative coronary artery disease - s/p PCI this AM; s/p CABG hypertension hyperlipidemia diabetes sleep apnea DJD Plan: S/p [facility] this AM with PCI of vein graft of obtuse marginal. Cont present cardiac regimen and monitor overnight. The patient has been seen in conjunction with Dr. Sun who agrees with the assessment and plan of care. Subjective Date of service: 06/14/17 Principal diagnosis: cp Interval history: pt for [facility] today Objective Last Vital Signs Temp 97.7 F 06/14/17 07:49 Pulse 51 L 06/14/17 07:49 Resp 20 06/14/17 07:49 BP 122/56 06/14/17 07:49 Pulse Ox 100 06/14/17 07:49 - Physical Examination General: Appears Well HEENT: Positive: PERRL, Normocephaly, Mucus Membranes Moist Neck: Positive: neck supple, trachea midline Cardiac: Positive: Reg Rate and Rhythm, S1/S2 Lungs: Positive: clear to auscultation Neuro: Positive: Grossly Intact Abdomen: Positive: Unremarkable, Soft, Active Bowel Sounds. Negative: Tender Skin: Positive: Clear. Negative: Rash Musculoskeletal: No Fluid Collection, No Pain, Normal Range of Motion Extremities: Absent: edema - Labs and Meds Coagulation 06/14/17 Range/Units 04:34 PT 13.4 (12.2-14.9) Sec. INR 0.97 (0.87-1.13) CBC 06/14/17 Range/Units 04:34 WBC 4.3 L (4.5-11.0) K/mm3 RBC 4.22 (3.65-5.03) M/mm3 Hgb 10.7 (10.1-14.3) gm/dl Hct 33.6 (30.3-42.9) % Plt Count 143 (140-440) K/mm3 Comprehensive Metabolic Panel 06/14/17 Range/Units 04:34 Sodium 137 (137-145) mmol/L Potassium 3.8 (3.6-5.0) mmol/L Chloride 95.6 L (98-107) mmol/L Carbon Dioxide 31 H (22-30) mmol/L BUN 19 H (7-17) mg/dL Creatinine 0.9 (0.7-1.2) mg/dL Glucose 77 (65-100) mg/dL Calcium 9.1 (8.4-10.2) mg/dL
--- NOTE | 2017-06-14 13:52 | Cardiac Catherization Report ---
CARDIAC CATHETERIZATION REPORT AND CORONARY INTERVENTION OF THE SAPHENOUS VEIN GRAFT TO THE OBTUSE MARGINAL BRANCH DATE OF PROCEDURE: 06/14/2017 INDICATIONS: An 82-year-old female with history of aortocoronary bypass surgery done in 2002 and 2003 with left internal mammary to the LAD and saphenous vein graft to the obtuse marginal branch. She had catheterization done last year, which showed patent left internal mammary to the LAD with 20% lesion in the body of the vein graft to the marginal branch. Presently, admitted with shortness of breath and chest pain with exertion and grossly abnormal nuclear imaging with lateral ischemia, hence she was scheduled for cardiac catheterization for definitive diagnosis and treatment. The patient is aware of the procedure, potential complications, and the alternatives of therapy available. DESCRIPTION OF PROCEDURE: The patient was brought to the catheterization laboratory in a fasting condition. Right groin area was thoroughly cleansed with Betadine solution and sterile drapes were applied. Local anesthesia was achieved using 2% Xylocaine. Right femoral artery puncture was made using 5-Romanian micropuncture needle. Subsequently, a 5-Romanian sheath was introduced. A 5-Romanian multipurpose catheter was used to obtain the angiograms of the vein graft to the obtuse marginal branch, angiograms of the right coronary artery, and the angiograms of the left coronary artery in multiple views. Left ventriculogram was performed in HERNANDEZ projection using hand injection. Subsequently, a 5-Romanian mammary catheter was used to obtain the angiograms of the left internal mammary graft to the LAD. Subsequently, procedure was converted to interventional procedure. Following findings were noted on cardiac catheterization. HEMODYNAMICS: 1. Left and aortic pressure 150/60, left ventricular pressure 152/27. No gradient across the aortic valve. Estimated ejection fraction 35-40%. No gradient across the aortic valve. 2. Left ventriculogram done in HERNANDEZ projection showed akinesis of the inferior wall with rest of the ventricle moving well. Overall, ejection fraction was felt to be around 35-40%. Mitral regurgitation could not be evaluated. 3. Right coronary artery dominant vessel arises normally from right coronary cusp. This is diffusely heavily calcified. A patent stent was noted in the distal RCA. This is dominant vessel. This is diffusely diseased in the proximal and mid parts approaching 50% or so. PDA and LV branch without significant disease. 4. Left coronary artery arises normally from left coronary cusp. Left main, LAD and circumflex arteries are heavily calcified. Left main is without significant disease. LAD has diffuse 50-60% proximal to mid lesion. Distal LAD is not visualized injection because of the competitive flow from the left internal mammary graft. Circumflex artery shows 100% occluded first obtuse marginal branch with circumflex artery in the AV groove diffusely diseased 70-80% long lesion calcified and a small to medium sized vessel. 5. Saphenous vein graft to the obtuse marginal branch is showing segmental 90% lesion in the mid body. Otherwise, rest of the vein graft without significant disease and also obtuse marginal branch medium sized vessel showing only minimal irregularities. 6. Left internal mammary graft to the distal LAD is widely patent and LAD itself showing only minimal disease distally. FINAL IMPRESSION: 1. Akinetic inferior wall ejection fraction 35-40%. Mitral regurgitation could not be evaluated. 2. 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 This marginal branch is protected by a vein graft, which has severe 90% mid lesion. Left anterior descending artery shows diffuse proximal and mid disease and protected well by patent left internal mammary to the distal left anterior descending artery. Right coronary artery showed patent stent in the distal right coronary artery with calcific diffuse disease in the proximal and mid part approaching 50-60%, which is diffuse disease. The patient does have moderate left ventricular dysfunction. Akinetic inferior wall noted. At this time, considering the above angiographic picture and positive stress thallium with inappropriate medical therapy including nitrates and beta-cherise, it was felt that the patient would benefit from intervention of the vein graft to the obtuse marginal branch. As mentioned above, this graft has a mid 90% segmental lesion. The patient was given IV heparin as anticoagulant. Subsequently, a LCB catheter was used to engage the ostium of the vein graft. A 0.014 inch Alcove XT wire was advanced without difficulty into the vein graft and the obtuse marginal branch. Lesion was dilated with 2.5 x 15 mm TREK balloon followed by placement a 2.5 x 18 mm Resolute Integrity stent expanded to 12 atmospheres. Very good result was noted. Lesion was reduced from 90% to 0%. MATT 3 flow was noted pre and post-procedure. No distal embolization was noted. No evidence of dissection or perforation was noted. The patient tolerated the procedure well without any chest pain, hemodynamically stable. No arrhythmias were noted. At the end of the procedure, angiograms of the right femoral artery were obtained and when it was felt appropriate. A 6-Romanian ProGlide device was inserted in a standard fashion to obtain very good hemostasis. No hematoma was noted. The patient tolerated the procedure well. The patient will be monitored in telemetry. No untoward complications were noted. FINAL IMPRESSION: 1. Uncomplicated drug-eluting stent placement of the vein graft to the obtuse marginal branch. 2. ProGlide device was used to obtain hemostasis of the right femoral artery access. Procedure was uncomplicated. JOB# [id number] MACHELLE/SAMMY
[2017-06-14] MEDS: DIOVAN PO SCH (14:00)
[2017-06-14] MEDS: ASPIRIN PO SCH (14:00)
[2017-06-14] MEDS: NORVASC PO SCH (14:00)
[2017-06-14] MEDS: NEURONTIN PO SCH ×2 (14:00→21:55)
[2017-06-14] MEDS: IMDUR PO SCH (14:00)
[2017-06-14] MEDS: LOPRESSOR PO SCH ×2 (14:00→21:55)
[2017-06-14] MEDS: HCTZ PO SCH (14:00)
[2017-06-14] MEDS: ZAROXOLYN PO SCH (16:31)
[2017-06-14] MEDS: ZETIA PO SCH (16:33)
[2017-06-15 05:46] LABS: Hematocrit 32.8 % (30.3-42.9); Hemoglobin 10.6 gm/dl (10.1-14.3); Mean Corpuscular HGB Conc 32 % (30-34); Mean Corpuscular Volume 79 fl (79-97); Platelet Count 130 K/mm3 (140-440); Red Blood Count 4.18 M/mm3 (3.65-5.03); Red Cell Distribution Width 14.6 % (13.2-15.2); White Blood Count 4.9 K/mm3 (4.5-11.0)
[2017-06-15 05:48] LABS: Mean Corpuscular Hemoglobin 25 pg (28-32)
[2017-06-15] MEDS: ALPHAGAN P 0.15% OU SCH ×2 (06:50→14:14)
[2017-06-15] MEDS: HEPARIN SUB-Q SCH ×2 (06:50→14:15)
[2017-06-15] MEDS: NOVOLOG SUB-Q SCH ×2 (10:22→14:14)
[2017-06-15] MEDS: NORVASC PO SCH (10:23)
[2017-06-15] MEDS: LOPRESSOR PO SCH (10:24)
[2017-06-15] MEDS: ASPIRIN PO SCH (10:24)
[2017-06-15] MEDS: ZETIA PO SCH (10:24)
[2017-06-15] MEDS: PLAVIX PO SCH (10:24)
[2017-06-15] MEDS: DIOVAN PO SCH (10:24)
[2017-06-15] MEDS: NEURONTIN PO SCH (10:24)
[2017-06-15] MEDS: LASIX IV SCH (10:25)
[2017-06-15] MEDS: HCTZ PO SCH (10:25)
[2017-06-15] MEDS: IMDUR PO SCH (10:25)
[2017-06-15 10:28] VITALS: BP 146/56
--- NOTE | 2017-06-15 12:10 | Progress Note ---
Assessment and Plan Assessment: chest pain suggestive of angina pectoris - currently resolved; No acute changes on the EKG and cardiac enzymes are so far negative coronary artery disease - s/p PCI 06/14; s/p CABG hypertension hyperlipidemia diabetes sleep apnea DJD Plan: Currently stable cardiac status. Cont present cardiac regimen. Pt may discharge home from cardiology standpoint. Follow up in our [place] office with Dr. Manzanares on 06/24/2017 @ 1:15PM. The patient has been seen in conjunction with Dr. Jarquin who agrees with the assessment and plan of care. Subjective Date of service: 06/15/17 Principal diagnosis: cp Interval history: pt resting comfortably in bed, no current complaints. S/p LHC with PCI yesterday. Right femoral LHC site c/d/ with no evidence of bleeding or hematoma. VSS. CBC stable this AM. Objective Last Vital Signs Temp 97.9 F 06/15/17 03:45 Pulse 51 L 06/15/17 03:45 Resp 22 06/15/17 10:00 BP 146/56 06/15/17 10:25 Pulse Ox 100 06/15/17 03:45 - Physical Examination General: Appears Well HEENT: Positive: PERRL, Normocephaly, Mucus Membranes Moist Neck: Positive: neck supple, trachea midline Cardiac: Positive: Reg Rate and Rhythm, S1/S2 Lungs: Positive: clear to auscultation Neuro: Positive: Grossly Intact Abdomen: Positive: Unremarkable, Soft, Active Bowel Sounds. Negative: Tender Skin: Positive: Clear. Negative: Rash Musculoskeletal: No Fluid Collection, No Pain, Normal Range of Motion Extremities: Absent: edema - Labs and Meds CBC 06/15/17 Range/Units 05:11 WBC 4.9 (4.5-11.0) K/mm3 RBC 4.18 (3.65-5.03) M/mm3 Hgb 10.6 (10.1-14.3) gm/dl Hct 32.8 (30.3-42.9) % Plt Count 130 L (140-440) K/mm3
--- NOTE | 2017-06-15 13:32 | Discharge Summary ---
Providers - Providers Date of Admission: 06/11/17 15:37 Date of discharge: 06/15/17 Attending physician: MAVIS SCALES 06/14/17 11:48 Consult to Cardiac Rehabilitation [CONS] Routine Reason For Exam: Cardiac Rehab Evaluation Primary care physician: KAILA CARRASQUILLO MD Hospitalization Condition: Stable Disposition: DC-01 TO HOME OR SELFCARE Time spent for discharge: 40 min Core Measure Documentation - Palliative Care Palliative Care/ Comfort Measures: Not Applicable - Core Measures Any of the following diagnoses?: heart failure - Heart Failure Discharge Requirements JOYCELYN/ARB for LVSD if EF <40%: Yes Beta cherise at discharge: Yes Exam - Constitutional Vitals: Temp Pulse Resp BP Pulse Ox 97.9 F 56 L 22 146/56 100 06/15/17 03:45 06/15/17 11:00 06/15/17 10:00 06/15/17 10:25 06/15/17 03:45 Plan Activity: advance as tolerated, fall precautions Diet: low cholesterol, low salt Follow up with: PRIMARY MD FOREIGN [Primary Care Provider] - 3-5 Days BENJAMIN BUCKNER MD [Staff Physician] - 06/24/17 1:15 pm Prescriptions: Aspirin EC [Aspirin Enteric Coated TAB] 81 mg PO QDAY #30 tablet. Insulin NPH/Regular [NovoLIN 70/30] 15 unit SUB-Q BIDDIAB 30 Days
== END 2017-06-15 15:12 | disposition home or self-care (01) | DRG 246 ==
LOC: ED 11:27 → 4A 15:37
PROVIDERS: ADMIT Internal Medicine; ATTEND Internal Medicine
PROC: 027034Z Dilation of Coronary Artery, One Artery with Drug-eluting Intraluminal Device, Percutaneous Approach (ICD-10-PCS; principal; 2017-06-14)
PROC: 4A023N7 Measurement of Cardiac Sampling and Pressure, Left Heart, Percutaneous Approach (ICD-10-PCS; 2017-06-14)
PROC: B2111ZZ Fluoroscopy of Multiple Coronary Arteries using Low Osmolar Contrast (ICD-10-PCS; 2017-06-14)
PROC: B2121ZZ Fluoroscopy of Single Coronary Artery Bypass Graft using Low Osmolar Contrast (ICD-10-PCS; 2017-06-14)
PROC: B2181ZZ Fluoroscopy of Left Internal Mammary Bypass Graft using Low Osmolar Contrast (ICD-10-PCS; 2017-06-14)
PROC: B2151ZZ Fluoroscopy of Left Heart using Low Osmolar Contrast (ICD-10-PCS; 2017-06-14)
PROC: B41G1ZZ Fluoroscopy of Left Lower Extremity Arteries using Low Osmolar Contrast (ICD-10-PCS; 2017-06-14)
DX: I25.719 Atherosclerosis of autologous vein coronary artery bypass graft(s) with unspecified angina pectoris (principal); I50.23 Acute on chronic systolic (congestive) heart failure; G47.33 Obstructive sleep apnea (adult) (pediatric); E66.9 Obesity, unspecified; E78.5 Hyperlipidemia, unspecified; I11.0 Hypertensive heart disease with heart failure; R00.1 Bradycardia, unspecified; M19.90 Unspecified osteoarthritis, unspecified site; E11.9 Type 2 diabetes mellitus without complications; I25.2 Old myocardial infarction; Z95.1 Presence of aortocoronary bypass graft; Z95.5 Presence of coronary angioplasty implant and graft; Z83.3 Family history of diabetes mellitus; Z68.33 Body mass index [BMI] 33.0-33.9, adult; Z82.49 Family history of ischemic heart disease and other diseases of the circulatory system
CPT/HCPCS: 36415; 71010; 78452; 80048; 80074; 82962; 83735; 83880; 84484; 85007; 85025; 85027; 85610; 85730; 92937; 93005; 93010; 93017; 93306; 93459; 94760; 96374; A9502; C1725; C1760; C1769; C1874; C1887; C1894; C9604; J1644; J1815; J1940; J2250; J2785; J3010; J7040; Q9967